=== PATIENT | female | born 1995 | race Two or more races ===

== ENCOUNTER 2023-02-22 12:24 | Outpatient (CLI) | payer OTHER | END 2023-02-22 13:43 | disposition home or self-care (01) | LOC: PRENATAL 12:24 | PROVIDERS: ATTEND Obstetrics & Gynecology Maternal & Fetal Medicine | DX: O36.80X0 Pregnancy with inconclusive fetal viability, not applicable or unspecified (principal); Z3A.12 12 weeks gestation of pregnancy ==

== ENCOUNTER 2023-05-08 13:03 | Outpatient (CLI) | payer OTHER | END 2023-05-08 15:25 | disposition home or self-care (01) | LOC: PRENATAL 13:03 | PROVIDERS: ATTEND Obstetrics & Gynecology Maternal & Fetal Medicine | DX: O35.9XX0 Maternal care for (suspected) fetal abnormality and damage, unspecified, not applicable or unspecified (principal); O35.3XX0 Maternal care for (suspected) damage to fetus from viral disease in mother, not applicable or unspecified; O34.219 Maternal care for unspecified type scar from previous cesarean delivery; O44.00 Complete placenta previa NOS or without hemorrhage, unspecified trimester; Z14.8 Genetic carrier of other disease; Z3A.23 23 weeks gestation of pregnancy ==

== ENCOUNTER 2023-07-11 10:17 | Outpatient (CLI) | payer OTHER | END 2023-07-11 11:20 | disposition home or self-care (01) | LOC: PRENATAL 10:17 | PROVIDERS: ATTEND Obstetrics & Gynecology Maternal & Fetal Medicine | DX: O26.849 Uterine size-date discrepancy, unspecified trimester (principal); O36.8199 Decreased fetal movements, unspecified trimester, other fetus; O34.219 Maternal care for unspecified type scar from previous cesarean delivery; Z3A.32 32 weeks gestation of pregnancy ==

== ENCOUNTER 2023-08-18 10:00 | Inpatient (IN) | payer OTHER ==
[~2023-08-18] VITALS: Ht 157.5 cm; Wt 70.8 kg
[2023-08-18 11:47] LABS: URINE APPEARANCE Clear; URINE BILIRRUBIN Negative (NEGATIVE); URINE BLOOD Negative; URINE COLOR Yellow; URINE GLUCOSE Negative (NEGATIVE); URINE NITRATE Negative; URINE PROTEIN Trace (NEGATIVE)
[2023-08-18 12:03] LABS: HEMOGLOBIN 11.3 g/dL (12.0-15.00); MEAN CELL VOLUME 80.2 fL (80.00-100.00); MEAN CORPUSCULAR HEMOGLOBIN 25.8 pg (27.00-32.0); MEAN CORPUSCULAR HGB CONC 32.2 g/dl (32.0-36.0); RED BLOOD COUNT 4.37 M/uL (4.00-6.00); RED CELL DISTRIBUTION WIDTH 22.2 % (11.5-14.5)
[2023-08-18 12:08] LABS: PLATELET COUNT 92 K/uL (150-450)
[2023-08-18 12:22] LABS: URINE LEUKOCYTE Moderate
[2023-08-18 12:24] LABS: URINE BACTERIA 1577.3 uL (0.0-1933); URINE EPITHELIAL CELLS 38.9 uL (0.0-38.8); URINE WBC 33.8 uL (0.0-23.2)
[2023-08-18 12:24] LABS: INR < 0.93; PARTIAL THROMBOPLASTIN TIME 27.4 SECONDS (22.0-34.0); PROTHROMBIN TIME 9.6 SECONDS (9.0-11.5)
[2023-08-23] MEDS ORDERED: PRENATE ELITE1 EAC2 PO (09:01)
[2023-08-23 16:04] LABS: ABG PO2 31.7 mmHg (80-100); BASE EXCESS -5.3 mmol/l; BICARBONATE 20.7 mmol/l (23-25); SaO2 52.8 %; o2 21 %
[2023-08-23 20:47] LABS: HEMATOCRIT 33.3 % (36.0-45.00); HEMOGLOBIN 10.8 g/dL (12.0-15.00); MEAN CELL VOLUME 80.8 fL (80.00-100.00); MEAN CORPUSCULAR HEMOGLOBIN 26.2 pg (27.00-32.0); MEAN CORPUSCULAR HGB CONC 32.5 g/dl (32.0-36.0); RED BLOOD COUNT 4.12 M/uL (4.00-6.00); RED CELL DISTRIBUTION WIDTH 22.4 % (11.5-14.5)
[2023-08-23 20:49] LABS: PLATELET COUNT 82 K/uL (150-450)
== END 2023-08-25 12:08 | disposition home or self-care (01) | DRG 785 ==
LOC: OB/GYN 08-23 08:19 → O/R 08-23 08:19 → OB/GYN 08-23 09:57
PROVIDERS: ADMIT Obstetrics & Gynecology; ATTEND Obstetrics & Gynecology
PROC: 4A1HXCZ Monitoring of Products of Conception, Cardiac Rate, External Approach (ICD-10-PCS; 2023-08-23)
PROC: 0UB70ZZ Excision of Bilateral Fallopian Tubes, Open Approach (ICD-10-PCS; 2023-08-23)
PROC: 10D00Z1 Extraction of Products of Conception, Low, Open Approach (ICD-10-PCS; principal; 2023-08-23 13:15)
DX: O34.211 Maternal care for low transverse scar from previous cesarean delivery (principal); Z30.2 Encounter for sterilization; Z3A.38 38 weeks gestation of pregnancy; Z37.0 Single live birth; Z20.822 Contact with and (suspected) exposure to COVID-19